=== PATIENT | male | born 1970 | race Hispanic/Latino ===

== ENCOUNTER 2017-06-24 20:33 | Emergency (ER) | payer OTHER, BC ==
[~2017-06-24] VITALS: Ht 175.3 cm; Wt 77.8 kg
[~2017-06-24 20:33] MED LIST: AMITRIPTYLINE H25 MG PO; ATORVASTATIN CA10 MG PO; DICLOFENAC SODI75 MG PO; GABAPENTIN300 MG PO; GLUCOPHAGE500 MG PO; JANUVIA100 MG PO; LISINOPRIL10 MG PO; PROTONIX40 MG PO; SERTRALINE HCL100 MG PO; VIAGRA50 MG PO; ZOLOFT100 MG PO
[2017-06-24] MEDS ORDERED: AUGMENTIN875 MG PO (21:26)
[2017-06-24 22:21] VITALS: BP 140/82
== END 2017-06-24 22:22 | disposition home or self-care (01) ==
LOC: EME 20:33
PROC: 3E0234Z Introduction of Serum, Toxoid and Vaccine into Muscle, Percutaneous Approach (ICD-10-PCS; principal; 2017-06-24)
DX: S81.852A Open bite, left lower leg, initial encounter (principal); S31.825A Open bite of left buttock, initial encounter; W54.0XXA Bitten by dog, initial encounter; Y99.0 Civilian activity done for income or pay; Z23 Encounter for immunization; I10 Essential (primary) hypertension; E11.9 Type 2 diabetes mellitus without complications; Z79.84 Long term (current) use of oral hypoglycemic drugs; K21.9 Gastro-esophageal reflux disease without esophagitis; J45.909 Unspecified asthma, uncomplicated; G43.909 Migraine, unspecified, not intractable, without status migrainosus; F32.9 Major depressive disorder, single episode, unspecified
CPT/HCPCS: 99281; 99284